=== PATIENT | female | born 1960 | race Caucasian/White ===

== ENCOUNTER → 2016-09-22 | Outpatient (CLI) | payer BC | LOC: BRMIMAGING 13:21 | PROVIDERS: ATTEND Internal Medicine Hematology & Oncology | DX: Z90.5 Acquired absence of kidney (principal); C50.912 Malignant neoplasm of unspecified site of left female breast; K76.0 Fatty (change of) liver, not elsewhere classified | CPT/HCPCS: 76770-PO ==

== ENCOUNTER → 2017-02-23 | Outpatient (CLI) | payer BC | LOC: FIMAGING 14:23 | PROVIDERS: ATTEND Internal Medicine Hematology & Oncology | DX: R22.9 Localized swelling, mass and lump, unspecified (principal); Z85.3 Personal history of malignant neoplasm of breast; Z90.10 Acquired absence of unspecified breast and nipple ==

== ENCOUNTER → 2017-02-24 | Outpatient (CLI) | payer BC ==
[~2017-02-24] MED LIST: BUPIVACAINE 0.5% 10 ML SDV ONE; LIDO/EPI 1% **Not for Epidural 20 ML MDV ONE; LIDOCAINE 1% 300 MG/30 ML SDV ONE
== END ==
LOC: FIMAGING 10:02
PROVIDERS: ATTEND Internal Medicine Hematology & Oncology
PROC: 07B63ZX Excision of Left Axillary Lymphatic, Percutaneous Approach, Diagnostic (ICD-10-PCS; principal; 2017-02-24)
DX: C79.89 Secondary malignant neoplasm of other specified sites (principal); Z85.3 Personal history of malignant neoplasm of breast; Z85.528 Personal history of other malignant neoplasm of kidney

== ENCOUNTER → 2017-03-03 | Outpatient (CLI) | payer BC ==
[~2017-03-03] MED LIST changes: -BUPIVACAINE 0.5% 10 ML SDV ONE; +GADOBUTROL 10 ML VIAL IVP ONE; -LIDO/EPI 1% **Not for Epidural 20 ML MDV ONE; -LIDOCAINE 1% 300 MG/30 ML SDV ONE
== END ==
LOC: FIMAGING 09:07
PROVIDERS: ATTEND Internal Medicine Hematology & Oncology
DX: C50.919 Malignant neoplasm of unspecified site of unspecified female breast (principal)
CPT/HCPCS: A9585

== ENCOUNTER 2017-03-29 10:12 | Emergency (ER) | payer BC ==
[2017-03-29 10:32] VITALS: RESP 16
--- NOTE | 2017-03-29 11:33 | EDPHY ---
H & P Stated Complaint: Drainage from L axilla post lymph node dissection on Monday Time Seen by Provider: 03/29/17 11:18 HPI/ROS: CHIEF COMPLAINT: Surgical drain occlusion HISTORY OF PRESENT ILLNESS: The patient is a 57-year-old female who comes from home complaining that her TIERNEY drain is occluded. She has a history of breast cancer with bilateral mastectomy several years ago. 1 week ago she had recurrence of her cancer and lymph node biopsy with Dr. Fernando Black. TIERNEY drain was placed in her left axilla. Had been draining until this morning. She started to notice some swelling and came to the emergency department. Here the tubing was stripped by nursing staff and the drain is now draining again. She no longer has any swelling. No erythema. No pain. REVIEW OF SYSTEMS: Constitutional: denies: chills, fever, recent illness, recent injury EENTM: denies: blurred vision, double vision, nose congestion Respiratory: denies: cough, shortness of breath Cardiac: denies: chest pain, irregular heart rate, lightheadedness, palpitations Gastrointestinal/Abdominal: denies: abdominal pain, diarrhea, nausea, vomiting, blood streaked stools Genitourinary: denies: dysuria, frequency, hematuria, pain Musculoskeletal: denies: joint pain, muscle pain Skin: See HPI Neurological: denies: headache, numbness, paresthesia, tingling, dizziness, weakness Hematologic/Lymphatic: denies: blood clots, easy bleeding, easy bruising Immunologic/allergic: denies: HIV/AIDS, transplant EXAM: GENERAL: Well-appearing, well-nourished and in no acute distress. HEAD: Atraumatic, normocephalic. EYES: Pupils equal round and reactive to light, extraocular movements intact, sclera anicteric, conjunctiva are normal. ENT: TMs normal, nares patent, oropharynx clear without exudates. Moist mucous membranes. NECK: Normal range of motion, supple without lymphadenopathy or JVD. LUNGS: Breath sounds clear to auscultation bilaterally and equal. No wheezes rales or rhonchi. HEART: Regular rate and rhythm without murmurs, rubs or gallops. ABDOMEN: Soft, nontender, normoactive bowel sounds. No guarding, no rebound. No masses appreciated. BACK: No CVA tenderness, no spinal tenderness, step-offs or deformities EXTREMITIES: Normal range of motion, no pitting or edema. No clubbing or cyanosis. NEUROLOGICAL: Cranial nerves II through XII grossly intact. Normal speech, normal gait. 5/5 strength, normal movement in all extremities, normal sensation PSYCH: Normal mood, normal affect. SKIN: Surgical drain in place, no erythema, no surrounding or swelling. Stitches in place, wounds intact, no dehiscence. Source: Patient Exam Limitations: No limitations - Personal History Current Tetanus Diphtheria and Acellular Pertussis (TDAP): Yes Tetanus Vaccine Date: <10 YRS - Medical/Surgical History Other PMH: renal CA. breast CA w/double mastectomies - Family History Significant Family History: No pertinent family hx - Social History Smoking Status: Never smoked Alcohol Use: Sober Drug Use: None Constitutional: Initial Vital Signs Temperature (C) 37.1 C 03/29/17 10:20 Heart Rate 57 L 03/29/17 10:20 Respiratory Rate 16 03/29/17 10:20 Blood Pressure 101/65 03/29/17 10:20 O2 Sat (%) 98 03/29/17 10:20 O2 Delivery Mode Room Air Allergies/Adverse Reactions: Penicillins Allergy (Verified 02/17/10 10:50) Sulfa (Sulfonamide Antibiotics) Allergy (Verified 02/17/10 10:50) Home Medications: Medication Instructions Recorded LORazepam [Ativan 1 mg (RX)] mg PO 05/03/12 lamoTRIgine [LamICTAL 100 MG (RX)] mg PO 05/03/12 QUEtiapine FUMARATE [Seroquel 100 75 mg PO DAILY 03/29/17 mg (*)] Zaleplon [Sonata] 5 mg PO 03/29/17 Medical Decision Making ED Course/Re-evaluation: The patient is feeling completely better. She is eager to go home because she states that she parked in a handicap spot and she has her dog in the car. She will follow up with Dr. Medina as planned. Differential Diagnosis: Partial list of the Differential diagnosis considered include but were not limited to; surgical drain occlusion, infection and although unlikely based on the history and physical exam, I also considered hematoma, pneumothorax. I discussed these differential diagnoses and the plan with the patient as well as the usual and expected course. The patient understands that the diagnosis is provisional and that in medicine we are not always correct and that further workup is often warranted. Usual and customary warnings were given. All of the patient's questions were answered. The patient was instructed to return to the emergency department should the symptoms at all worsen or return, otherwise to followup with the physician as we discussed. Departure - Departure Disposition: Home, Routine, Self-Care Clinical Impression: TIERNEY drain, broken Qualifiers: Encounter type: initial encounter Qualified Code(s): T85.698A - Other mechanical complication of other specified internal prosthetic devices, implants and grafts, initial encounter Condition: Fair Instructions: [facility] (ED) Referrals: Amy Eugene MD [Primary Care Provider] - As per Instructions Eduard Black MD [Medical Doctor] - As per Instructions
[2017-03-29 11:42] VITALS: BP 116/59; PULSE 78; TEMP 98.4; O2SAT 94
== END 2017-03-29 11:38 | disposition home or self-care (01) ==
DX: T85.698A Other mechanical complication of other specified internal prosthetic devices, implants and grafts, initial encounter (principal); Z85.3 Personal history of malignant neoplasm of breast; Z85.528 Personal history of other malignant neoplasm of kidney; Y82.8 Other medical devices associated with adverse incidents

== ENCOUNTER → 2017-10-10 | Outpatient (CLI) | payer BC | LOC: FIMAGING 12:45 | PROVIDERS: ATTEND Radiology Radiation Oncology | DX: J45.909 Unspecified asthma, uncomplicated (principal); J98.11 Atelectasis; Z85.3 Personal history of malignant neoplasm of breast; Z92.21 Personal history of antineoplastic chemotherapy ==

== ENCOUNTER → 2018-01-12 | Outpatient (CLI) | payer BC | LOC: FIMAGING 09:44 | PROVIDERS: ATTEND Internal Medicine Hematology & Oncology | DX: Z08 Encounter for follow-up examination after completed treatment for malignant neoplasm (principal); R93.5 Abnormal findings on diagnostic imaging of other abdominal regions, including retroperitoneum; Z90.5 Acquired absence of kidney; Z85.528 Personal history of other malignant neoplasm of kidney ==

== ENCOUNTER → 2018-09-21 | Outpatient (CLI) | payer BC | LOC: FIMAGING 12:19 | PROVIDERS: ATTEND Internal Medicine Hematology & Oncology | DX: C50.812 Malignant neoplasm of overlapping sites of left female breast (principal); Z17.0 Estrogen receptor positive status [ER+]; Z80.3 Family history of malignant neoplasm of breast; Z85.3 Personal history of malignant neoplasm of breast | CPT/HCPCS: A9585 ==

== ENCOUNTER 2018-10-01 13:52 | Day surgery (SDC) | payer BC ==
[2018-10-01] MEDS ORDERED: fentaNYL 100 MCG/2 ML INJ IVP PRN (13:53)
[2018-10-01] MEDS ORDERED: MIDAZOLAM 2 MG/2 ML VIAL IVP PRN (13:53)
[2018-10-01] MEDS ORDERED: NALOXONE HCL 0.4 MG/ML INJ IVP PRN (13:53)
[2018-10-01] MEDS ORDERED: FLUMAZENIL 0.5 MG/5 ML MDV IVP PRN (13:53)
[2018-10-01] MEDS ORDERED: NS 1,000 ML IV SCH (14:00)
[2018-10-01 14:55] LABS: INR 1.03 (0.83-1.16); PROTIME(PATIENT) 13.1 SEC (12.0-15.0)
[2018-10-01] MEDS ORDERED: FLUMAZENIL 0.5 MG/5 ML MDV IVP ONE (14:56)
[2018-10-01] MEDS ORDERED: MIDAZOLAM 2 MG/2 ML VIAL ONE ×2 (14:56→16:11)
[2018-10-01] MEDS ORDERED: NALOXONE HCL 0.4 MG/ML INJ ONE (14:56)
[2018-10-01] MEDS ORDERED: fentaNYL 100 MCG/2 ML INJ ONE ×2 (14:57→16:11)
[2018-10-01] MEDS ORDERED: BUPIVACAINE 0.5% 30 ML SDV ONE (15:03)
[2018-10-01] MEDS ORDERED: LIDOCAINE 1% 300 MG/30 ML SDV ONE (15:03)
--- NOTE | 2018-10-01 15:27 | PDPROPOC ---
Sedation Plan of Care ASA Classification: ASA 2 Planned drugs: fentanyl, midazolam Mallampati Score: Class 1 Mallampati Reference Image: Patient passed 3-3-2 rule?: Yes
--- NOTE | 2018-10-01 15:29 | PDGENHP ---
History & Physical Chief Complaint: T8 AND L1 HOT LESIONS ON PET History of Present Illness: H/O RCC AND BREAST CA. HOT LESIONS. Pertinent Past, Social, Family History: NON SMOKER. Relevant Physical Exam: MID THORACIC PAIN Cardiorespiratory Assessment: RRR, CTA
[2018-10-01] MEDS ORDERED: ONDANSETRON 4 MG/2 ML VIAL ONE (15:46)
[2018-10-01] MEDS ORDERED: ONDANSETRON 4 MG/2 ML VIAL IVP ONE (16:45)
[2018-10-01] MEDS ORDERED: ONDANSETRON 4 MG/2 ML VIAL IVP PRN (17:25)
--- NOTE | 2018-10-01 17:30 | PDRADPN ---
Radiology Procedure Note Date of Procedure: 10/01/18 Radiologist: Aracelis Cherry Anesthesia: IV Sedation Pre-op Diagnosis: hot T8 and L1 lesions Post-op Diagnosis: same Indication: h/o RCC and Breast CA. PET avid lesions Procedure: T8 and L1 bone biopsy Finding(s): cores sent in formalin and sterile cup Inf/Abcess present in the surg proc area at time of surgery?: No
[2018-10-01] MEDS ORDERED: ACETAMINOPHEN 500 MG TAB PO ONE (18:00)
[2018-10-01 18:11] VITALS: BP 121/85
== END 2018-10-01 18:25 | disposition home or self-care (01) ==
LOC: FIMAGING 13:52
PROVIDERS: ATTEND Radiology Diagnostic Radiology
PROC: BR151ZZ Fluoroscopy of Thoracic Facet Joint(s) using Low Osmolar Contrast (ICD-10-PCS; principal; 2018-10-01 17:20)
PROC: 0QB03ZX Excision of Lumbar Vertebra, Percutaneous Approach, Diagnostic (ICD-10-PCS; principal; 2018-10-01 17:20)
PROC: BR161ZZ Fluoroscopy of Lumbar Facet Joint(s) using Low Osmolar Contrast (ICD-10-PCS; principal; 2018-10-01 17:20)
PROC: 0PB43ZX Excision of Thoracic Vertebra, Percutaneous Approach, Diagnostic (ICD-10-PCS; principal; 2018-10-01 17:20)
DX: R94.8 Abnormal results of function studies of other organs and systems (principal); Z85.3 Personal history of malignant neoplasm of breast; Z85.528 Personal history of other malignant neoplasm of kidney
CPT/HCPCS: J1200; J2250; J2310; J2405; J3010

== ENCOUNTER → 2018-11-15 | Outpatient (CLI) | payer BC | LOC: EMCIMAGING 09:01 ==